=== PATIENT | female | born 2000 | race Caucasian/White ===

== ENCOUNTER 2022-08-14 10:25 | Emergency (ER) | payer OTHER ==
[~2022-08-14] VITALS: Ht 160 cm; Wt 61.7 kg
[2022-08-14] MEDS ORDERED: MELOXICAM7.5 MG PO ×3 (13:11→13:24)
== END 2022-08-14 13:40 | disposition home or self-care (01) ==
LOC: FSED 10:41
DX: R10.30 Lower abdominal pain, unspecified (principal); N83.202 Unspecified ovarian cyst, left side; N83.201 Unspecified ovarian cyst, right side; D36.7 Benign neoplasm of other specified sites; F17.210 Nicotine dependence, cigarettes, uncomplicated
CPT/HCPCS: 74176; 76830; 76856; 80048; 80076; 81003; 81025; 85025; 99284